=== PATIENT | male | born 1965 | race Hispanic/Latino ===

== ENCOUNTER 2019-02-07 14:13 | Emergency (ER) | payer OTHER, SELFPAY ==
[2019-02-07 14:21] VITALS: BP 155/90; PULSE 55; RESP 20; TEMP 36.6; O2SAT 99
--- NOTE | 2019-02-07 14:35 | DI.RAD.S_ITS ---
PROCEDURE: XR TOE RT MIN 2V INDICATIONS: R 1st toe injury TECHNIQUE: 3 views of the 1st toe was acquired. COMPARISON: None. FINDINGS: Bones: There appears to be a subtle nondisplaced fracture involving the tuft of the great toe. No intra-articular extension is evident. Deformity involving the medial bases of the proximal phalanges of the 2nd, 3rd, and 4th toes probably is related to previous trauma. No dislocations or suspicious osseous lesions are identified. Soft tissues: No suspicious soft tissue densities. Scattered vascular calcifications are present. IMPRESSION: Possible nondisplaced tuft fracture of the great toe. Please correlate clinically. Dictated by: Luis Fernando Brown M.D. on 02/07/2019 at 14:16 Approved by: Luis Fernando Brown M.D. on 02/07/2019 at 14:19
[2019-02-07] MEDS: BACITRACIN OINT 0.9 GM PCKT 1 APPLIC TOP (14:41)
[2019-02-07 15:19] VITALS: BP 149/70; PULSE 54; O2SAT 100
--- NOTE | 2019-02-07 15:29 | ED_ITS ---
HPI - Wound/Laceration <JOHN Agudelo - Last Filed: 02/08/19 00:23> General Chief Complaint: Wound/Laceration Stated Complaint: Right foot swelling Time Seen by Provider: 02/07/19 14:22 Source: patient Mode of arrival: ambulatory Limitations: no limitations History of Present Illness HPI narrative: This is a pleasant 52-year-old gentleman, no history of diabetes, presents to ED with right 1st toe bruise and bleeding from open skin. He reports history of high blood pressure and kidney problems. He report that he was unaware of injury to this toe up until this morning when he noticed bleeding when he was about to take shower. He denies any discomfort at this time. He has skin laceration in L shape on the plantar aspect of toe. 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 He reports is able to move his toes without problem. He is unsure of last tetanus immunization. Related Data Previous Rx's Medication Instructions Recorded cephalexin [Keflex] 500 mg PO Q6H 7 Days #28 cap 02/07/19 Allergies Allergy/AdvReac Type Severity Reaction Status Date / Time No Known Drug Allergies Allergy Verified 02/07/19 14:23 Review of Systems <JOHN Agudelo - Last Filed: 02/08/19 00:23> Review of Systems ROS Unobtainable: All systems reviewed & are unremarkable except as noted in HPI and below PFSH <JOHN Agudelo - Last Filed: 02/08/19 00:23> Medical History (Updated 02/07/19 @ 16:49 by JOHN Agudelo) HTN (hypertension) (Acute) Kidney problem (Acute) Social History (Updated 02/07/19 @ 15:24 by JOHN Agudelo) Smoking Status: Never smoker Exam <JOHN Agudelo - Last Filed: 02/08/19 00:23> Narrative Exam Narrative: General appearance: well developed, well nourished, in no acute distress. Head: normocephalic, atraumatic, no scalp lesions, non-tender. Eye: pupil equal, round. EOMI. Nose: nares patent. Oral: mucosa moist. Neck/Thyroid: neck supple, full range of motion, no visible masses. Skin: Skin tear/laceration on R 1st toe in plantar aspect with ecchymosis. Mild swelling and erythema. no suspicious other rashes, lesions over visible areas. Warm and dry. Heart: no clubbing, no cyanosis, no edema. Lungs: Breathing even and unlabored. No stridor. No accessory muscles used. Chest: normal shape and expansion. Abdomen: non-obese, non-distended. Neurologic: alert and oriented. Cognitive exam, [employer] and PNS grossly intact on informal exam. Psych: good eye contact, normal affect. Initial Vital Signs Initial Vital Signs: Vital Signs Temperature 97.9 F 02/07/19 14:21 Pulse Rate 55 L 02/07/19 14:21 Respiratory Rate 02/07/19 14:21 Blood Pressure 155/90 H 02/07/19 14:21 Pulse Oximetry 99 02/07/19 14:21 Extrem General: normal to inspection Right upper extremity: normal to inspection Left upper extremity: normal to inspection Right lower extremity: foot (1st toe) Details: normal capillary refill, toes with normal ROM, warmth, edema, ecchymosis (plantar aspect and around the 1st toe), vascular exam Details: dorsalis pedis pulse present and normal capillary refill, tendon exam Details: active flexion normal and active extension normal, motor-sensory exam Details: light-touch normal and other (L shape skin tear, peeled off the base dermis) Left lower extremity: normal to inspection and full ROM <Kimberly Acuña DO - Last Filed: 02/08/19 08:20> Initial Vital Signs Initial Vital Signs: Vital Signs Temperature 97.9 F 02/07/19 14:21 Pulse Rate 55 L 02/07/19 14:21 Respiratory Rate 02/07/19 14:21 Blood Pressure 155/90 H 02/07/19 14:21 Pulse Oximetry 99 02/07/19 14:21 Procedures <JOHN Agudelo - Last Filed: 02/08/19 00:23> Orthopedic Splinting/Casting Injury #1: Side: right Lower Extremity Injury Location: toe (1st toe) Lower Extremity Immobilizer: post-op shoe and luisito tape Post splinting neuro exam: intact Post splinting vascular exam: intact Placed by: Nursing Additional Comments: wound care done prior the splint applied. Applied bacitracin, covered with Xeroform and gauze. Course <JOHN Agudelo - Last Filed: 02/08/19 00:23> Orders Ordered: Discontinued Medications Bacitracin (Bacitracin) 1 applic TOP NOW ONE Stop: 02/07/19 14:37 Last Admin: 02/07/19 14:41 Dose: 1 applic Diphtheria/Tetanus/Acell Pertussis (Adacel) 0.5 ml IM .ONCE ONE Stop: 02/07/19 15:05 Last Admin: 02/07/19 15:34 Dose: 0.5 ml Cefazolin Sodium/Dextrose (Ancef) 2 gm in 100 mls @ 200 mls/hr IV NOW ONE Stop: 02/07/19 16:00 Last Infusion: 02/07/19 16:23 Dose: 0 mls/hr Admin: 02/07/19 15:52 Dose: 200 mls/hr Vital Signs - 8 hr 02/07/19 16:47 Pulse Rate 59 L Respiratory Rate 18 Blood Pressure [Left Arm] 158/78 H Pulse Oximetry 100 <Kimberly Acuña DO - Last Filed: 02/08/19 08:20> Orders Ordered: Discontinued Medications Bacitracin (Bacitracin) 1 applic TOP NOW ONE Stop: 02/07/19 14:37 Last Admin: 02/07/19 14:41 Dose: 1 applic Diphtheria/Tetanus/Acell Pertussis (Adacel) 0.5 ml IM .ONCE ONE Stop: 02/07/19 15:05 Last Admin: 02/07/19 15:34 Dose: 0.5 ml Cefazolin Sodium/Dextrose (Ancef) 2 gm in 100 mls @ 200 mls/hr IV NOW ONE Stop: 02/07/19 16:00 Last Infusion: 02/07/19 16:23 Dose: 0 mls/hr Admin: 02/07/19 15:52 Dose: 200 mls/hr Vital Signs - 8 hr 02/07/19 16:47 Pulse Rate 59 L Respiratory Rate 18 Blood Pressure [Left Arm] 158/78 H Pulse Oximetry 100 MDM - Wound/Laceration <JOHN Agudelo - Last Filed: 02/08/19 00:23> Differential Diagnosis Differential diagnosis: Likely laceration and other (fracture of toe) Medical Records Attestation: I reviewed the patient's medical records. Imaging Data XR- Toe R: Radiologist's impression: [address] [address] XRay Report Signed Patient: Armond Aburto LMR#: [id number] : 1965Acct:[id number] Age/Sex: 54 / MDate of Service: 02/07/19 Loc: ED Accession Number: [id number] Procedure: XR toe RT min 2V Ordering Provider: Nilay Chan PROCEDURE: XR TOE RT MIN 2V INDICATIONS: R 1st toe injury TECHNIQUE: 3 views of the 1st toe was acquired. COMPARISON: None. FINDINGS: Bones: There appears to be a subtle nondisplaced fracture involving the tuft of the great toe. No intra-articular extension is evident. Deformity involving the medial bases of the proximal phalanges of the 2nd, 3rd, and 4th toes probably is related to previous trauma. No dislocations or suspicious osseous lesions are identified. Soft tissues: No suspicious soft tissue densities. Scattered vascular calcifications are present. IMPRESSION: Possible nondisplaced tuft fracture of the great toe. Please correlate clinically. Dictated by: Luis Fernando Brown M.D. on 02/07/2019 at 14:16 Approved by: Luis Fernando Brown M.D. on 02/07/2019 at 14:19 MDM Narrative Medical decision making narrative: The physical exam showed blue/purple ecchymosis with R 1st toe despite patient reports no pain and has full ROM with open skin injury, the xray has obtained. Toe x-ray showed possible nondisplaced tuft fracture with open skin injury. The patient denies history of DM. The patient was given IV antibiotic medication to treat as open fracture of his right great toe and Rx'd oral medications to continue at home. Tdap has updated today. The patient was advised to follow up with his primary care physician in 2 days for wound recheck. Return precautions were discussed with the patient. Patient provided with postop shoe for splinting. Patient was advised to keep the dressing clean and dry and change it daily. Patient agrees with treatment plan and no further questions were expressed at this time. Discharge Plan Departure Patient Disposition: Home Clinical Impression: Toe fracture, right Qualifiers: Encounter type: initial encounter Toe: great toe Fracture type: open Phalanx: proximal Fracture alignment: nondisplaced Qualified Code(s): S92.414B - Nondisplaced fracture of proximal phalanx of right great toe, initial encounter for open fracture Discharge Date/Time: 02/07/19 16:57 Interventions: ED Discharge Assessment Last Done: 02/07/19 16:56 Instructions: DI for Toe Fracture Activity Restrictions/Additional Instructions: You have been diagnosed with [open nondisplaced fracture on your right 1st toe. Please keep the dressing clean and dry and do not soak her foot in water. Please change of dressing daily and as needed if it gets wet. You can apply [id number] antibiotic ointment, covered with gauze and where postop shoes that has been provided to you during ED visit. This will stabilize your toe and splinting it. You're tetanus has been updated today with Tdap]. What to do: *Take your medications as directed. Please start the antibiotic medication from tomorrow since you have received IV antibiotic medication here today. Please complete a course of antibiotic medications unless this gives you an allergy reaction. Please take Tylenol or Motrin as needed if you have discomfort. *Follow up with your primary care provider in 2-3 days at [facility] and call for an appointment. Let them know you were seen in the ED and that we asked you to be seen in follow up. *Return to ED if you have any new, worsening, or concerning symptoms, such as [increasing swelling, pain, redness, pus-like discharge, fever, warmth, chest pain, breathing difficulty or any acute concerns. ]. Prescriptions: New cephalexin [Keflex] 500 mg capsule 500 mg PO Q6H 7 Days Qty: 28 RF: 0 <Kimberly Acuña, DO - Last Filed: 02/08/19 08:20> [facility] ED Attending [place] Attestation: I was immediately available in the department for consultation. Documentation has been reviewed. I agree with assessment and plan.
[2019-02-07] MEDS: TET,DIPH,PERTUSS(ACELL),VAC/PF 0.5 ML SYRINGE IM (15:34)
[2019-02-07] MEDS: CEFAZOLIN 2 GM/100 ML FROZ.PIGGY IV (15:52)
[2019-02-07 16:47] VITALS: BP 158/78; PULSE 59; RESP 18; O2SAT 100
== END 2019-02-07 16:57 | disposition home or self-care (01) ==
PROVIDERS: Emergency Provider Nurse Practitioner Family
DX: S92.414B Nondisplaced fracture of proximal phalanx of right great toe, initial encounter for open fracture (principal)
CPT/HCPCS: 29550; 73660; 90471; 96365; 99283; 99284; 90715; J0690

== ENCOUNTER 2022-01-12 11:06 | Emergency (ER) | payer MEDICAID, SELFPAY ==
[2022-01-12] VITALS (38 sets, daily range): BP systolic 165–239; BP diastolic 81–132; PULSE 56–110; RESP 11–25; TEMP 36.7; O2SAT 97–100; BMI 28.3
--- NOTE | 2022-01-12 11:26 | DI.RAD.S_ITS ---
PROCEDURE: XR CHEST 1V INDICATIONS: chest pain TECHNIQUE: One view of the chest was acquired. COMPARISON: None. FINDINGS: Surgical changes and devices: Vascular stent noted in the left upper chest, likely representing an axillary stent. Lungs and pleura: Lungs are clear. No pleural effusions or pneumothorax. Mediastinum: Mediastinal contours appear normal. Heart size is normal. Bones and chest wall: No suspicious bony lesions. Overlying soft tissues appear unremarkable. IMPRESSION: No acute cardiopulmonary abnormalities or focal airspace disease. Dictated by: Marcos Watts M.D. on 01/12/2022 at 12:04 Approved by: Marcos Watts M.D. on 01/12/2022 at 12:05
--- NOTE | 2022-01-12 11:39 | DI.CT.S_ITS ---
PROCEDURE: CT HEAD/BRAIN WO CON INDICATIONS: severe weakness and very HTN TECHNIQUE: Noncontrast 4.5 mm thick angled axial sections acquired from the foramen magnum to the vertex, with coronal and sagittal reformats. For radiation dose reduction, the following was used: automated exposure control, adjustment of mA and/or kV according to patient size. COMPARISON: None. FINDINGS: Image quality: Excellent. CSF spaces: Basal cisterns are patent. No extra-axial fluid collections. Ventricles are normal in size and shape. There is a small cavum septum pellucidum. Brain: No midline shift. No intracranial masses or hemorrhage. Oswald-white matter interface is normal. Severe vertebral artery calcifications. Skull and face: Calvarium and visualized facial bones are intact, without suspicious lesions. Sinuses: Visualized sinuses and mastoids are clear. IMPRESSION: 1. No acute intracranial abnormalities. 2. A cavum septum pellucidum. Dictated by: Teri Gavin M.D. on 01/12/2022 at 12:05 Approved by: Teri Gavin M.D. on 01/12/2022 at 12:11
[2022-01-12 11:50] LABS: Add Manual Diff / Slide Review NO; Basophils Absolute Auto 100 /uL (0-100); Basophils Percent Auto 1.4 % (0-2); Eosinophils Absolute Auto 300 /uL (0-450); Eosinophils Percent Auto 4.6 % (2-4); Hematocrit 39.3 % (41-53); Hemoglobin 13.8 g/dL (13.5-17.5); Lymphocytes Absolute Auto 1300 /uL (1100-4500); Lymphocytes Percent Auto 19.8 % (25-40); Mean Corpuscular Hemoglobin 33.8 PG (26-34); Mean Corpuscular Volume 96.6 fL (80-100); Monocytes Absolute Auto 700 /uL (0-900); Monocytes Percent Auto 10.9 % (3-14); Neutrophils Absolute Auto 4200 /uL (1500-7000); Neutrophils Percent Auto 63.3 % (50-75); Platelet Count 242 X10^3/uL (150-400); Red Blood Cell Count 4.07 X10^6/uL (4.5-5.9); Red Cell Distribution Width 13.4 % (11.6-14.8); White Blood Cell Count 6.7 X10^3/uL (4.5-11.0)
[2022-01-12] MEDS: ONDANSETRON 4 MG/2 ML INJ IV (11:58)
[2022-01-12 12:04] LABS: Alanine Aminotransferase 19 IU/L (<50); Albumin 5.3 g/dL (3.5-5.0); Albumin Globulin Ratio 1.3 (1.0-2.8); Alkaline Phosphatase 159 U/L (38-126); Aspartate Aminotransferase 14 IU/L (17-59); Bilirubin Total 0.7 mg/dL (0.2-1.3); Carbon Dioxide 18 mmol/L (22-32); Chloride 90 mmol/L (98-107); Creatine Kinase 366 U/L (55-170); Globulin 4.2 g/dL (1.7-4.1); Glucose 144 mg/dL (70-100); HEMOLYSIS < 15 (0-50); Lipase 159 U/L (23-300); Magnesium 3.1 mg/dL (1.6-2.3); Sodium 131 mmol/L (137-145); Total Protein 9.5 g/dL (6.3-8.2)
[2022-01-12 12:11] LABS: Estimated Glomerular Filt Rate 3 mL/min (>60)
[2022-01-12 12:15] LABS: Troponin I < 0.012 ng/mL (0.01-0.034)
--- NOTE | 2022-01-12 12:22 | ED_ITS ---
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 He received a full run and normal dialysis on Wednesday. He denies fever chills she is noted to be quite hypertensive but was not able to take his pressure medications today because of his nausea. He does not really have any abdominal pain no chest pain shortness of breath. His profound bilateral weakness in both upper extremities and legs. He actually states that his potassium has been high previously he says it was high about 10 months ago he was at [facility] at that time this is also where he gets his dialysis. Related Data Home Medications Medication Instructions Recorded Confirmed carvedilol 3.125 mg tablet (Coreg) 3.125 mg PO BID 01/12/22 01/12/22 Allergies Allergy/AdvReac Type Severity Reaction Status Date / Time No Known Drug Allergies Allergy Verified 02/07/19 14:23 Review of Systems Review of Systems Narrative: GENERAL: Denies chills, fatigue, malaise, fever, sweats, travel HEENT: Denies sinus pain, ear pain, sore throat, difficulty swallowing, neck pain RESPIRATORY: Denies dyspnea, cough, wheezing, hemoptysis, sputum. CARDIOVASCULAR: Denies chest pain, palpitations, orthopnea, edema GASTROINTESTINAL: Denies nausea, vomiting, abdominal pain, diarrhea, constipation, melena. : Denies dysuria, frequency, incontinence, hematuria, urinary retention, flank pain. MUSCULOSKELETAL: Denies weakness, joint pain, or bony pain SKIN: No rash, no erythema, no pruritus NEUROLOGIC: See HPI PSYCHIATRIC: No concerning psychosocial issues. 12 point review of systems is negative except for those stated above and HPI Patient History Medical History HTN (hypertension) Kidney problem Social History Smoking Status: Never smoker Smoking Status: Never smoker alcohol intake frequency: a few times a month Exam Initial Vital Signs Initial Vital Signs: Vital Signs Temperature 98.0 F 01/12/22 11:22 Pulse Rate 58 L 01/12/22 11:22 Respiratory Rate 16 01/12/22 11:22 Blood Pressure 214/102 H 01/12/22 11:22 Pulse Oximetry 100 01/12/22 11:22 Oxygen Delivery Method 01/12/22 11:22 GENERAL: Awake alert 56-year-old male generalized weakness and in no acute distress. HEENT: Head atraumatic,EOMI, pupils reactive, face symmetric, moist mucous membranes CARDIOVASCULAR: Regular rate and rhythm without murmurs, rubs or gallops. RESPIRATORY: Breath sounds equal bilaterally, no wheezes rales or rhonchi. ABDOMEN: Soft, nontender. Normoactive bowel sounds all 4 quadrants. No guarding or rebound. EXTREMITIES: Normal range of motion, no clubbing or edema. Neurovascularly intact NEUROLOGICAL: Alert and oriented x4.Normal gait and speech. Moving all extremities is bilateral upper extremity weakness able to lift legs off the gurney and hold for 5 seconds bilaterally SKIN: Warm, dry, no laceration, no petechiae, no rashes or lesions. Course Orders Ordered: Discontinued Medications Albuterol (Albuterol 2.5 Mg/3 Ml Neb (Adult)) 2.5 mg INH NOW ONE Stop: 01/12/22 12:25 Last Admin: 01/12/22 13:22 Dose: 2.5 mg Documented By: LETITIA Albuterol (Albuterol 2.5 Mg/3 Ml Neb (Adult)) 10 mg INH NOW ONE Stop: 01/12/22 19:30 Last Admin: 01/12/22 19:43 Dose: 10 mg Documented By: Carvedilol (Carvedilol 3.125 Mg Tablet) 3.125 mg PO NOW ONE Stop: 01/12/22 15:27 Last Admin: 01/12/22 15:55 Dose: 3.125 mg Documented By: CELIA Dextrose (Dextrose 25 % In Water 2.5 Gm/10 Ml Syringe) 2.5 gm IV NOW ONE Stop: 01/12/22 12:24 Last Admin: 01/12/22 12:41 Dose: 2.5 gm Documented By: CELIA Sodium Chloride (Normal Saline 0.9%) 1,000 mls @ 150 mls/hr IV CONT ANNABEL Last Infusion: 01/12/22 13:30 Dose: 0 mls/hr Documented By: Infusion: 01/12/22 13:29 Dose: 0 mls/hr Documented By: Admin: 01/12/22 12:42 Dose: 150 mls/hr Documented By: CELIA Calcium Gluconate 4.65 meq/ (Sodium Chloride) 60 mls @ 120 mls/hr IV NOW ONE Stop: 01/12/22 12:24 Last Infusion: 01/12/22 13:26 Dose: 0 mls/hr Documented By: Admin: 01/12/22 12:41 Dose: 120 mls/hr Documented By: CELIA INSULIN DRIP PREMIX (Myxredlin Drip Premix) 100 unit in 100 mls @ 6 mls/hr IV TITRATE ANNABEL; Protocol Last Titration: 01/12/22 19:10 Dose: 0 mls/hr Documented By: CELIA Co-signed By: AMU Titration: 01/12/22 16:33 Dose: 5 mls/hr Documented By: CELIA Co-signed By: AMU Titration: 01/12/22 15:58 Dose: 4 mls/hr Documented By: CELIA Co-signed By: AMU Titration: 01/12/22 14:00 Dose: 0 mls/hr Documented By: ISAIAH Co-signed By: CELIA Admin: 01/12/22 13:21 Dose: 6 ml/hr, 6 mls/hr Documented By: ANA PAULA Co-signed By: ISAIAH Dextrose (D10w) 1,000 mls @ 125 mls/hr IV CONT ANNABEL Last Infusion: 01/12/22 19:09 Dose: 0 mls/hr Documented By: Admin: 01/12/22 13:22 Dose: 125 mls/hr Documented By: ANA PAULA Nicardipine HCl 25 mg/ Sodium (Chloride) 250 mls @ 50 mls/hr IV TITRATE ANNABEL; Protocol Last Admin: 01/12/22 19:11 Dose: Not Given Documented By: CELIA Insulin Human Regular (Insulin Regular 100 Unit/Ml 3 Ml Vial) 5 unit IV NOW ONE Stop: 01/12/22 12:24 Last Admin: 01/12/22 12:41 Dose: 5 unit Documented By: CELIA Co-signed By: HANNYU Ondansetron HCl (Ondansetron 4 Mg/2 Ml Inj) 4 mg IV NOW ONE Stop: 01/12/22 11:41 Last Admin: 01/12/22 11:58 Dose: 4 mg Documented By: AMU Sodium Polystyrene Sulfonate (Sodium Polystyrene Sulfon/Sorb 15 Gm/60 Ml Cup) 30 gm PO NOW ONE Stop: 01/12/22 12:24 Last Admin: 01/12/22 12:42 Dose: 30 gm Documented By: CELIA Vital Signs Vital signs: Vital Signs - 8 hr 01/12/22 13:15 01/12/22 13:23 01/12/22 13:30 Pulse Rate 59 L 60 61 Respiratory Rate 17 20 Blood Pressure Pulse Oximetry 100 100 100 Oxygen Delivery Method Room Air Fraction of Inspired Oxygen 01/12/22 13:31 01/12/22 13:31 01/12/22 13:32 Pulse Rate 61 Respiratory Rate 14 Blood Pressure 220/102 H 202/95 H Pulse Oximetry 100 Oxygen Delivery Method Fraction of Inspired Oxygen 01/12/22 13:32 01/12/22 13:45 01/12/22 14:00 Pulse Rate 60 57 L Respiratory Rate 12 Blood Pressure 165/81 H Pulse Oximetry 100 99 Oxygen Delivery Method Fraction of Inspired Oxygen 01/12/22 14:00 01/12/22 14:15 01/12/22 14:30 Pulse Rate 56 L 59 L 58 L Respiratory Rate 18 20 Blood Pressure Pulse Oximetry 99 100 100 Oxygen Delivery Method Fraction of Inspired Oxygen 01/12/22 14:45 01/12/22 15:00 01/12/22 15:55 Pulse Rate 61 68 69 Respiratory Rate 13 22 Blood Pressure 202/132 H Pulse Oximetry 100 100 Oxygen Delivery Method Fraction of Inspired Oxygen 01/12/22 15:06 01/12/22 15:06 01/12/22 15:15 Pulse Rate 66 66 Respiratory Rate 24 22 Blood Pressure 216/86 H Pulse Oximetry 100 99 Oxygen Delivery Method Fraction of Inspired Oxygen 01/12/22 15:50 01/12/22 15:51 01/12/22 16:00 Pulse Rate 70 70 Respiratory Rate 18 Blood Pressure 202/85 H Pulse Oximetry 100 100 Oxygen Delivery Method Fraction of Inspired Oxygen 01/12/22 16:00 01/12/22 16:15 01/12/22 16:30 Pulse Rate 67 67 Respiratory Rate 21 21 Blood Pressure 217/87 H Pulse Oximetry 100 100 Oxygen Delivery Method Fraction of Inspired Oxygen 01/12/22 16:30 01/12/22 16:45 01/12/22 17:00 Pulse Rate 70 68 Respiratory Rate 23 18 Blood Pressure 202/85 H Pulse Oximetry 100 100 Oxygen Delivery Method Fraction of Inspired Oxygen 01/12/22 17:00 01/12/22 17:15 01/12/22 17:30 Pulse Rate 66 64 Respiratory Rate 17 17 Blood Pressure 211/86 H Pulse Oximetry 100 100 Oxygen Delivery Method Fraction of Inspired Oxygen 01/12/22 17:30 01/12/22 17:45 01/12/22 18:01 Pulse Rate 63 62 71 Respiratory Rate 25 H 21 24 Blood Pressure Pulse Oximetry 100 100 98 Oxygen Delivery Method Fraction of Inspired Oxygen 01/12/22 18:15 01/12/22 18:25 01/12/22 18:25 Pulse Rate 110 H 65 Respiratory Rate 15 11 L Blood Pressure 239/102 H Pulse Oximetry 100 100 Oxygen Delivery Method Fraction of Inspired Oxygen 01/12/22 18:30 01/12/22 18:30 01/12/22 19:45 Pulse Rate 65 Respiratory Rate 14 Blood Pressure 220/86 H Pulse Oximetry 100 Oxygen Delivery Method Room Air Fraction of Inspired Oxygen MDM - Weakness Lab Data Result diagrams: 01/12/22 11:38 01/12/22 20:51 Labs: Lab Results 01/12/22 01/12/22 01/12/22 Range/Units 11:38 11:38 11:38 WBC 6.7 (4.5-11.0) X10^3/uL RBC 4.07 L (4.5-5.9) X10^6/uL Hgb 13.8 (13.5-17.5) g/dL Hct 39.3 L (41-53) % MCV 96.6 (80-100) fL MCH 33.8 (26-34) PG MCHC 35.0 (30-36) % RDW 13.4 (11.6-14.8) % Plt Count 242 (150-400) X10^3/uL Neut % (Auto) 63.3 (50-75) % Lymph % (Auto) 19.8 L (25-40) % [place] % (Auto) 10.9 (3-14) % Eos % (Auto) 4.6 H (2-4) % Baso % (Auto) 1.4 (0-2) % Neut # (Auto) 4200 (5854-4528) /uL Lymph # (Auto) 1300 (2094-6300) /uL [place] # (Auto) 700 (0-900) /uL Eos # (Auto) 300 (0-450) /uL Baso # (Auto) 100 (0-100) /uL Sodium 131 L (137-145) mmol/L Potassium 7.5 H* (3.4-5.1) mmol/L Chloride 90 L (98-107) mmol/L Carbon Dioxide 18 L (22-32) mmol/L BUN 130 H* (9-20) mg/dL Creatinine 16.32 H* (0.66-1.25) mg/dL Estimated GFR 3 L (>60) mL/min BUN/Creatinine Ratio 8.0 (6-22) Glucose 144 H (70-100) mg/dL Lactate 1.0 (0.7-2.1) mmol/L Calcium 10.0 (8.4-10.2) mg/dL Magnesium 3.1 H (1.6-2.3) mg/dL Total Bilirubin 0.7 (0.2-1.3) mg/dL AST 14 L (17-59) IU/L ALT 19 (<50) IU/L Alkaline Phosphatase 159 H (38-126) U/L Total Creatine Kinase 366 H (55-170) U/L CK-MB (CK-2) 13.30 H (<2.37) ng/mL CK-MB (CK-2) Rel Index 3.6 (1.5-5.0) % Troponin I < 0.012 (0.01-0.034) ng/mL Total Protein 9.5 H (6.3-8.2) g/dL Albumin 5.3 H (3.5-5.0) g/dL Globulin 4.2 H (1.7-4.1) g/dL Albumin/Globulin Ratio 1.3 (1.0-2.8) Lipase 159 (23-300) U/L SARS-CoV-2 (PCR) (Negative) 01/12/22 01/12/22 01/12/22 Range/Units 12:18 15:00 17:50 WBC (4.5-11.0) X10^3/uL RBC (4.5-5.9) X10^6/uL Hgb (13.5-17.5) g/dL Hct (41-53) % MCV (80-100) fL MCH (26-34) PG MCHC (30-36) % RDW (11.6-14.8) % Plt Count (150-400) X10^3/uL Neut % (Auto) (50-75) % Lymph % (Auto) (25-40) % [place] % (Auto) (3-14) % Eos % (Auto) (2-4) % Baso % (Auto) (0-2) % Neut # (Auto) (1937-8479) /uL Lymph # (Auto) (5065-2600) /uL [place] # (Auto) (0-900) /uL Eos # (Auto) (0-450) /uL Baso # (Auto) (0-100) /uL Sodium 132 L 130 L (137-145) mmol/L Potassium 6.2 H D 5.3 H (3.4-5.1) mmol/L Chloride 91 L 90 L (98-107) mmol/L Carbon Dioxide 18 L 18 L (22-32) mmol/L BUN 136 H* 137 H* (9-20) mg/dL Creatinine 15.93 H* 15.7 H* (0.66-1.25) mg/dL Estimated GFR 3 L 3 L (>60) mL/min BUN/Creatinine Ratio 8.5 8.7 (6-22) Glucose 84 116 H (70-100) mg/dL Lactate (0.7-2.1) mmol/L Calcium 9.9 9.1 (8.4-10.2) mg/dL Magnesium (1.6-2.3) mg/dL Total Bilirubin (0.2-1.3) mg/dL AST (17-59) IU/L ALT (<50) IU/L Alkaline Phosphatase (38-126) U/L Total Creatine Kinase (55-170) U/L CK-MB (CK-2) (<2.37) ng/mL CK-MB (CK-2) Rel Index (1.5-5.0) % Troponin I (0.01-0.034) ng/mL Total Protein (6.3-8.2) g/dL Albumin (3.5-5.0) g/dL Globulin (1.7-4.1) g/dL Albumin/Globulin Ratio (1.0-2.8) Lipase (23-300) U/L SARS-CoV-2 (PCR) Negative (Negative) 01/12/22 Range/Units 20:51 WBC (4.5-11.0) X10^3/uL RBC (4.5-5.9) X10^6/uL Hgb (13.5-17.5) g/dL Hct (41-53) % MCV (80-100) fL MCH (26-34) PG MCHC (30-36) % RDW (11.6-14.8) % Plt Count (150-400) X10^3/uL Neut % (Auto) (50-75) % Lymph % (Auto) (25-40) % [place] % (Auto) (3-14) % Eos % (Auto) (2-4) % Baso % (Auto) (0-2) % Neut # (Auto) (7470-0555) /uL Lymph # (Auto) (5458-6498) /uL [place] # (Auto) (0-900) /uL Eos # (Auto) (0-450) /uL Baso # (Auto) (0-100) /uL Sodium 128 L (137-145) mmol/L Potassium 5.1 (3.4-5.1) mmol/L Chloride 90 L (98-107) mmol/L Carbon Dioxide 16 L (22-32) mmol/L BUN 138 H* (9-20) mg/dL Creatinine 15.2 H* (0.66-1.25) mg/dL Estimated GFR 3 L (>60) mL/min BUN/Creatinine Ratio 9.1 (6-22) Glucose 167 H (70-100) mg/dL Lactate (0.7-2.1) mmol/L Calcium 8.7 (8.4-10.2) mg/dL Magnesium (1.6-2.3) mg/dL Total Bilirubin (0.2-1.3) mg/dL AST (17-59) IU/L ALT (<50) IU/L Alkaline Phosphatase (38-126) U/L Total Creatine Kinase (55-170) U/L CK-MB (CK-2) (<2.37) ng/mL CK-MB (CK-2) Rel Index (1.5-5.0) % Troponin I (0.01-0.034) ng/mL Total Protein (6.3-8.2) g/dL Albumin (3.5-5.0) g/dL Globulin (1.7-4.1) g/dL Albumin/Globulin Ratio (1.0-2.8) Lipase (23-300) U/L SARS-CoV-2 (PCR) (Negative) Point of Care Testing Glucose POC 137 Imaging Data Chest x-ray: Radiologist Impression: Signed Patient: Armond Aburto MR#: [id number] : 1965 Acct:[id number] Age/Sex: 56 / M Date of Service: 01/12/22 Loc: ED Accession Number: [id number] ?? Procedure: XR chest 1V Ordering Provider: Kimberly Acuña D.O. PROCEDURE:? XR CHEST 1V ? INDICATIONS:? chest pain ? TECHNIQUE:? One view of the chest was acquired.? ? COMPARISON:? None. ? FINDINGS:? ? Surgical changes and devices:? Vascular stent noted in the left upper chest, likely representing an axillary stent.? ? Lungs and pleura:? Lungs are clear.? No pleural effusions or pneumothorax.? ? Mediastinum:? Mediastinal contours appear normal.? Heart size is normal.? ? Bones and chest wall:? No suspicious bony lesions.? Overlying soft tissues appear unremarkable.? ? IMPRESSION:? No acute cardiopulmonary abnormalities or focal airspace disease. ? Dictated by: Marcos Watts M.D. on 01/12/2022 at 12:04 ? ? CT scan - head: Radiologist Impression: Signed Patient: Armond Aburto MR#: [id number] : 1965 Acct:[id number] Age/Sex: 56 / M Date of Service: 01/12/22 Loc: ED Accession Number: [id number] ?? Procedure: CT head/brain wo con Ordering Provider: Kimberly Acuña D.O. PROCEDURE:? CT HEAD/BRAIN WO CON ? INDICATIONS:? severe weakness and very HTN ? TECHNIQUE:? Noncontrast 4.5 mm thick angled axial sections acquired from the foramen magnum to the vertex, with coronal and sagittal reformats.? For radiation dose reduction, the following was used:? automated exposure control, adjustment of mA and/or kV according to patient size.? ? COMPARISON:? None. ? FINDINGS:? Image quality:? Excellent.? ? CSF spaces:? Basal cisterns are patent.? No extra-axial fluid collections.? Ventricles are normal in size and shape.? There is a small cavum septum pellucidum.? ? Brain:? No midline shift.? No intracranial masses or hemorrhage.? Oswald-white matter interface is normal.? Severe vertebral artery calcifications. ? Skull and face:? Calvarium and visualized facial bones are intact, without suspicious lesions.? ? Sinuses:? Visualized sinuses and mastoids are clear.? ? IMPRESSION:? ? 1. No acute intracranial abnormalities. ? 2. A cavum septum pellucidum. ? ? ? Dictated by: Teri Gavin M.D. on 01/12/2022 at 12:05 ? ? Approved by: Teri Gavin M.D. on 01/12/2022 at 12: ECG Data Interpretation: Sinus rhythm rate 64 SD interval 398 QRS 118 QTC 420 peak T-waves ST depression noted in aVL and [address]-elevation no T-wave inversion MDM Narrative Medical decision making narrative: Patient is found to have a potassium 7.5 creatinine of 16 BUN of 130. He states this has happened to him before about 10 months ago of he thought that this might be what it is. He states that he was dialyzed Wednesday 2 days ago and came up here for work however, I question that. Records from [facility] have been reviewed last note from Nephrology was January 01, last set of blood work I see here is December 05. 1300 Dr. Edward, nephrology at [facility] has been updated patient's symptoms test results at this time he does strongly recommend insulin drip and dextrose he also recommended Lokelma if we had it. Patient does need dialysis. 1500 patient re-evaluated he has had multiple bowel movements. He actually is a lot stronger now he says he feels better. Blood pressure has improved. Rechecking labs. Patient's potassium has improved significantly with treatments. Insulin is not a permanent home. Patient states that he actually has Lokelma at home which she has not taken in a while. 1930 Dr. Chen, nephrology at [facility] initially consulted in attempts to transfer patient for dialysis actually states to discharge patient home with potassium of 5.3 with Lokelma and have him get dialysis tomorrow at his is scheduled time. He suspects that the fistula is not working and he is being significantly under dialyzed. He also recommends According to records patient has at issues with his fistula and they frequently have to tunnel it. Patient is likely under dialyzed which would explain his test results and symptoms today. Symptoms have overall improved. Critical bed shortage all unable to get any sort of dialysis. Patient's best bet is to be discharged and have his regular dialysis tomorrow. His potassium has improved he has locale at home all. He is hypertensive but needs to be dialyzed. At this time he is in no respiratory distress. He likely needs his fistula recannulized. Discharge Plan Departure Patient Disposition: Home Clinical Impression: Acute hyperkalemia, Chronic kidney disease, Hypertension Activity Restrictions/Additional Instructions: *You have been diagnosed with hyperkalemia, high potassium *What to do: Your fistula is unlikely to be working or not getting appropriate dialysis. Please give your energy and sustainability manager your blood work from today. YOU MUST GO TO DIALYSIS TOMORROW *Continue to take medications as directed Take Lokelma tonight as soon as you get home *Follow up with your primary care provider in 2-3 days or call [phone] *Return to ER if you should have increasing weakness, chest pain shortness of breath or any new, worsening or concerning symptoms Prescriptions: No Action carvedilol [Coreg] 3.125 mg Tablet 3.125 mg PO BID Visit Report Forms: Patient Portal/API
[2022-01-12 12:34] LABS: CKMB % Relative Index 3.6 % (1.5-5.0)
[2022-01-12 12:36] LABS: Potassium 7.5 mmol/L (3.4-5.1)
[2022-01-12 12:37] LABS: Blood Urea Nitrogen 130 mg/dL (9-20)
[2022-01-12] MEDS: CALCIUM GLUCONATE 4.65 MEQ in SODIUM CHLORIDE 0.9% 50 ML 120 MEQ IV (12:41)
[2022-01-12] MEDS: INSULIN REGULAR 100 UNIT/ML 3 ML VIAL IV (12:41)
[2022-01-12] MEDS: DEXTROSE 25 % IN WATER 2.5 GM/10 ML SYRINGE IV (12:41)
[2022-01-12] MEDS: SODIUM CHLORIDE 0.9% 1,000 ML 150 ML IV (12:42)
[2022-01-12] MEDS: SODIUM POLYSTYRENE SULFON/SORB 15 GM/60 ML CUP 30 GM PO (12:42)
[2022-01-12 13:04] LABS: COVID19 -Nasal RAPID Negative (Negative)
[2022-01-12] MEDS: INSULIN DRIP PREMIX 100 UNIT/100 ML PLAST..BAG 6 UNIT IV (13:21)
[2022-01-12] MEDS: ALBUTEROL 2.5 MG/3 ML NEB (ADULT) INH (13:22)
[2022-01-12] MEDS: DEXTROSE 10 % IN WATER 1,000 ML 125 ML IV (13:22)
[2022-01-12 15:21] LABS: Calcium 9.9 mg/dL (8.4-10.2); Carbon Dioxide 18 mmol/L (22-32); Chloride 91 mmol/L (98-107); Glucose 84 mg/dL (70-100); Sodium 132 mmol/L (137-145)
[2022-01-12 15:49] LABS: BUN Creatinine Ratio 8.5 (6-22); Estimated Glomerular Filt Rate 3 mL/min (>60); HEMOLYSIS 55 (0-50); Potassium 6.2 mmol/L (3.4-5.1)
[2022-01-12 15:51] LABS: Blood Urea Nitrogen 136 mg/dL (9-20)
[2022-01-12] MEDS: carvediloL 3.125 MG TABLET PO (15:55)
[2022-01-12 18:14] LABS: Calcium 9.1 mg/dL (8.4-10.2); Carbon Dioxide 18 mmol/L (22-32); Chloride 90 mmol/L (98-107); Glucose 116 mg/dL (70-100); HEMOLYSIS 27 (0-50); Potassium 5.3 mmol/L (3.4-5.1); Sodium 130 mmol/L (137-145)
[2022-01-12 18:21] LABS: Estimated Glomerular Filt Rate 3 mL/min (>60)
[2022-01-12 18:22] LABS: BUN Creatinine Ratio 8.7 (6-22); Blood Urea Nitrogen 137 mg/dL (9-20)
--- NOTE | 2022-01-12 18:58 | PC.NURSE ---
Pt states that he wants to leave at 2129. He said his friend gets off of work at 2129 and will take him back home to [place] and so he can go to dialysis tomorrow. Pt educated on the importance of staying especially with his BMP levels. Pt states his K has been 6+ many times and he does okay as long as he goes to dialysis. Pt states that he is feeling much better and is able to ambulate with a strong and steady gait now. Dr. Acuña has been informed. She states to hold nicardipine drip and will go address his wishes in a moment
[2022-01-12] MEDS: ALBUTEROL 2.5 MG/3 ML NEB (ADULT) 10 MG INH (19:43)
[2022-01-12 21:08] LABS: Calcium 8.7 mg/dL (8.4-10.2); Carbon Dioxide 16 mmol/L (22-32); Chloride 90 mmol/L (98-107); Glucose 167 mg/dL (70-100); Potassium 5.1 mmol/L (3.4-5.1); Sodium 128 mmol/L (137-145)
[2022-01-12 21:33] LABS: HEMOLYSIS 21 (0-50)
[2022-01-12 21:39] LABS: BUN Creatinine Ratio 9.1 (6-22); Estimated Glomerular Filt Rate 3 mL/min (>60)
[2022-01-12 21:41] LABS: Blood Urea Nitrogen 138 mg/dL (9-20)
== END 2022-01-12 22:08 | disposition home or self-care (01) ==
PROVIDERS: Emergency Medicine; Emergency Provider Emergency Medicine
DX: E87.5 Hyperkalemia (principal); N18.9 Chronic kidney disease, unspecified; I10 Essential (primary) hypertension; R07.9 Chest pain, unspecified; Z99.2 Dependence on renal dialysis; Z20.822 Contact with and (suspected) exposure to COVID-19
CPT/HCPCS: 36415; 70450; 71045; 80048; 80053; 82550; 82553; 82962; 83605; 83690; 83735; 84484; 85025; 87635; 93005; 94640; 96361; 96365; 96366; 96375; 99284; C9803; J0610; J2405; J7613